=== PATIENT | female | born 1950 | race Two or more races ===

== ENCOUNTER 2023-05-21 16:18 | Emergency (ER) | payer MEDICARE, MEDICAID ==
[~2023-05-21] VITALS: Ht 160 cm; Wt 59.8 kg
[2023-05-21 16:44] VITALS: BP 144/66; PULSE 78; RESP 18; O2SAT 97
== END 2023-05-21 18:33 | disposition left against medical advice (07) ==
LOC: ER 16:18
DX: M54.9 Dorsalgia, unspecified (principal); Z53.21 Procedure and treatment not carried out due to patient leaving prior to being seen by health care provider